=== PATIENT | male | born 2000 | race Caucasian/White ===

== ENCOUNTER 2024-02-05 23:24 | Emergency (ER) | payer OTHER ==
[2024-02-05 23:36] VITALS: RESP 18
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
[2024-02-06] MEDS: BACITRACIN OINT 1 EACH PACKET TOPICAL ONE (00:10)
[2024-02-06] MEDS: CIPROFLOXACIN HCL 500 MG TAB PO STA (00:11)
[2024-02-06] MEDS: CLINDAMYCIN 150 MG CAP PO STA (00:11)
[2024-02-06 01:57] VITALS: BP 128/85; PULSE 78; TEMP 98
[2024-02-06 10:50] LABS: Hepatitis A Antibody IgM Nonreactive (Nonreactive); Hepatitis B Core IgM Nonreactive (Nonreactive); Hepatitis B Surface Antigen Nonreactive (Nonreactive); Hepatitis C IgG Antibody Nonreactive (Nonreactive)
[2024-02-06 11:01] LABS: Hepatitis B Surface AB- Quant 3.5 mIU/mL
[2024-02-06 12:59] LABS: HIV 2 AB Non-Reactive (Non-Reactive); HIV AB P24 Non-Reactive (Non-Reactive); HIV P24 AG Non-Reactive (Non-Reactive)
== END 2024-02-06 01:56 | disposition home or self-care (01) ==
LOC: EC 02-06 00:05
DX: S70.372A Other superficial bite of left thigh, initial encounter (principal); Y04.1XXA Assault by human bite, initial encounter; Z88.0 Allergy status to penicillin
CPT/HCPCS: 36415; 80074; 86704; 86706; 87340; 87390; 99283